=== PATIENT | female | born 1965 | race African-American/Black ===

== ENCOUNTER 2020-01-14 10:30 | Emergency (ER) | payer OTHER ==
[~2020-01-14] VITALS: Ht 157.5 cm; Wt 95.3 kg
[2020-01-14] MEDS ORDERED: ZYRTEC10 M3 (10:52)
[2020-01-14] MEDS ORDERED: SKELAXIN800 MG PO (14:46)
[2020-01-14] MEDS ORDERED: KETO10TA2 PO (14:46)
== END 2020-01-14 15:06 | disposition home or self-care (01) ==
LOC: ER 10:30
DX: S43.81XA Sprain of other specified parts of right shoulder girdle, initial encounter (principal); X50.9XXA Other and unspecified overexertion or strenuous movements or postures, initial encounter; Y93.89 Activity, other specified; Y92.89 Other specified places as the place of occurrence of the external cause; Y99.8 Other external cause status